=== PATIENT | female | born 1990 | race American Indian/Alaskan Native ===

== ENCOUNTER 2020-07-22 14:12 | Outpatient (CLI) | payer OTHER | END 2020-07-22 20:08 | disposition home or self-care (01) | LOC: OBS/DEL 14:12 | PROVIDERS: ATTEND Obstetrics & Gynecology | DX: O26.843 Uterine size-date discrepancy, third trimester (principal); O42.013 Preterm premature rupture of membranes, onset of labor within 24 hours of rupture, third trimester; Z3A.28 28 weeks gestation of pregnancy ==

== ENCOUNTER 2020-09-24 13:15 | Inpatient (IN) | payer OTHER ==
[~2020-09-24] VITALS: Ht 154.9 cm; Wt 74.8 kg
[2020-10-07] MEDS ORDERED: PRENATAL TABLE1 EAC1 PO (06:48)
== END 2020-10-09 18:18 | disposition home or self-care (01) | DRG 785 ==
LOC: LDR 10-07 05:47 → OB/GYN 10-07 21:41
PROVIDERS: ADMIT Obstetrics & Gynecology; ATTEND Obstetrics & Gynecology
PROC: 0UB70ZZ Excision of Bilateral Fallopian Tubes, Open Approach (ICD-10-PCS; 2020-10-07)
PROC: 4A1HXFZ Monitoring of Products of Conception, Cardiac Rhythm, External Approach (ICD-10-PCS; 2020-10-07)
PROC: 3E033VJ Introduction of Other Hormone into Peripheral Vein, Percutaneous Approach (ICD-10-PCS; 2020-10-07)
PROC: 10D00Z1 Extraction of Products of Conception, Low, Open Approach (ICD-10-PCS; principal; 2020-10-07 19:00)
DX: O62.1 Secondary uterine inertia (principal); Z3A.39 39 weeks gestation of pregnancy; Z37.0 Single live birth; Z30.2 Encounter for sterilization